=== PATIENT | female | born 1970 | race Hispanic/Latino ===

== ENCOUNTER 2018-09-10 08:19 | Emergency (ER) | payer BC ==
--- NOTE | 2018-09-10 08:50 | RAD ---
Exam:4 views left knee HISTORY: Pain. COMPARISON: None FINDINGS: No fracture. No cortical irregularity. Joint spaces are preserved. No joint effusion. IMPRESSION: Unremarkable 4 views left knee
--- NOTE | 2018-09-10 09:13 | ULT ---
Exam: Left lower extremity venous ultrasound with Doppler HISTORY: Left lower extremity pain. COMPARISON: None TECHNIQUE: Grayscale, color flow, Doppler imaging and spectral wave form analysis of the left leg low er extremity venous system FINDINGS: There is compressibility, presence of flow and augmentation in the common femoral vein, femoral vein and popliteal vein. Flow in the greater saphenous vein, profunda vein and posterior tibial vein IMPRESSION: No evidence of thrombus in the left lower extremity deep venous system
[2018-09-10] MEDS ORDERED: Ibuprofen 800 MG TAB ONE (09:14)
[2018-09-10] MEDS ORDERED: Acetaminophen 500 MG TAB ONE (09:14)
== END 2018-09-10 09:50 | disposition home or self-care (01) ==
LOC: ERS 08:19
DX: M25.562 Pain in left knee (principal)